=== PATIENT | female | born 1965 | race Caucasian/White ===

== ENCOUNTER 2017-02-02 11:41 | Emergency (ER) | payer OTHER ==
[~2017-02-02] VITALS: Ht 154.9 cm; Wt 48.6 kg
[2017-02-02 11:50] VITALS: TEMP 36.6; Ht 154.9 cm; Wt 48.6 kg
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
[2017-02-02] MEDS ORDERED: OPTIRAY 320 IV PRN (12:15)
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
[2017-02-02 14:12] VITALS: BP 142/104; PULSE 72; O2SAT 98
[2017-02-02 14:23] LABS: ISTAT CREATININE 0.8 mg/dl (0.6-1.3); ISTAT HEMOGLOBIN 12.9 g/dl (12.0-16.0); ISTAT IONIZED CALCIUM 1.21 mmol/l (1.12-1.32)
== END 2017-02-02 14:27 | disposition home or self-care (01) ==
LOC: C.EDB 11:43
DX: M54.2 Cervicalgia (principal); R07.9 Chest pain, unspecified; V43.52XA Car driver injured in collision with other type car in traffic accident, initial encounter